=== PATIENT | male | born 1955 | race African-American/Black ===

== ENCOUNTER 2025-08-27 10:47 | Emergency (ER) | payer MEDICARE ==
[~2025-08-27] VITALS: Ht 172.7 cm; Wt 71.4 kg
[2025-08-27 10:58] VITALS: BP 149/75; PULSE 70; RESP 18; TEMP 97.7; O2SAT 98
[2025-08-27] MEDS ORDERED: LOSA-382 PO (11:03)
[2025-08-27] MEDS ORDERED: METF-1211 PO (11:03)
[2025-08-27] MEDS ORDERED: AMLO-257 PO (11:03)
[2025-08-27 11:20] LABS: GLUCOMETER DEV NAME(LOC) ERT.7; GLUCOSE,POINT OF CARE 160 MG/DL (70-110)
== END 2025-08-27 11:47 | disposition left against medical advice (07) ==
LOC: EMS 10:47
DX: I10 Essential (primary) hypertension (principal); Z53.21 Procedure and treatment not carried out due to patient leaving prior to being seen by health care provider
CPT/HCPCS: 82962; 99281